=== PATIENT | female | born 1985 | race Caucasian/White ===

== ENCOUNTER 2017-09-03 05:06 | Observation (INO) | payer OTHER ==
[~2017-09-03] VITALS: Ht 180.3 cm; Wt 86.6 kg
[~2017-09-03 05:06] MED LIST: IBUPROFEN800 MG PO; MICRONOR0.35 MG PO; PNV-OB WITH DH1 EACH PO
[2017-09-03 07:34] LABS: BASOPHIL (%) 0.2 % (0-1); EOSINOPHIL COUNT 0.1 K/uL (0-0.3); HEMATOCRIT 39.1 % (36.0-46.0); HEMOGLOBIN 13.2 G/DL (11.9-15.5); IMMATURE GRANULOCYTE (%) 0.3 % (0.0-0.7); LYMPHOCYTE (%) 11.6 % (15-42); LYMPHOCYTE COUNT 1.2 K/uL (1.0-2.8); MCHC 33.8 G/DL (30.0-36.0); MCV 85.9 FL (83-99); MONOCYTE (%) 11.2 % (3-12); MONOCYTE COUNT 1.1 K/uL (0-0.8); NEUTROPHIL (%) 75.7 % (45-76); NEUTROPHIL COUNT 7.7 K/uL (1.8-6.4); PLATELET COUNT 232 K/uL (156-360); RBC DIS.WIDTH-CV 12.9 % (11.8-14.6); RBC DIS.WIDTH-SD 40.3 % (39-53); RED BLOOD COUNT 4.55 M/uL (3.80-5.20); WHITE BLOOD COUNT 10.1 K/uL (4.1-10.2)
[2017-09-03 08:09] LABS: ALBUMIN 3.7 g/dL (3.2-4.8); CHLORIDE 107 mEq/L (99-109); POTASSIUM 4.1 mEq/L (3.7-5.4); SODIUM 137 mEq/L (136-147)
[2017-09-03 08:11] LABS: GLUCOSE 89 mg/dL (70-99); TOTAL PROTEIN 6.7 g/dL (6.4-8.3)
[2017-09-03 08:15] LABS: ALKALINE PHOSPHATASE 76 IU/L (3-129); CREATININE 0.8 mg/dL (0.6-1.3); GFR ESTIMATE (CALCULATED) > 59 mL/min/
[2017-09-03 08:16] LABS: AST (GOT) 14 IU/L (2-34); UREA NITROGEN (BUN) 13 mg/dL (9-23)
[2017-09-03 08:18] LABS: ALT (GPT) 7 IU/L (3-49); LIPASE 18 U/L (1.0-51.0)
[2017-09-03] MEDS ORDERED: TRI-LO-MARZIA1 EACH PO (12:11)
[2017-09-03] MEDS ORDERED: ADVIL,NUPRIN,M200 MG PO (12:12)
[2017-09-03] MEDS ORDERED: OMEGA-3 1,0001 EAC1 PO (12:13)
[2017-09-03] MEDS ORDERED: MULTIVITAMIN1 EAC2 PO (12:13)
[2017-09-03] MEDS ORDERED: ESCITALOPRAM OX10 MG PO (12:14)
[2017-09-03] MEDS ORDERED: VITAMIN D PO (12:14)
[2017-09-03 13:30] LABS: TROP-I INTERPRETATION NEGATIVE; TROPONIN-I < 0.01 ng/mL (0.0-0.30)
[2017-09-03 16:23] VITALS: BP 123/67
[2017-09-03 19:24] LABS: TROP-I INTERPRETATION NEGATIVE; TROPONIN-I < 0.01 ng/mL (0.0-0.30)
[2017-09-03 19:26] VITALS: BP 128/62
[2017-09-03 23:53] VITALS: BP 107/57
[2017-09-04 01:34] LABS: TROP-I INTERPRETATION NEGATIVE; TROPONIN-I < 0.01 ng/mL (0.0-0.30)
[2017-09-04 05:01] VITALS: BP 105/65
[2017-09-04 05:13] LABS: HEMATOCRIT 35.6 % (36.0-46.0); HEMOGLOBIN 11.5 G/DL (11.9-15.5); MCHC 32.3 G/DL (30.0-36.0); MCV 86.6 FL (83-99); PLATELET COUNT 218 K/uL (156-360); RED BLOOD COUNT 4.11 M/uL (3.80-5.20); WHITE BLOOD COUNT 10.3 K/uL (4.1-10.2)
[2017-09-04 05:35] LABS: CHLORIDE 106 MEQ/L (99-109); CREATININE 0.8 MG/DL (0.6-1.3); GFR ESTIMATE (CALCULATED) > 59 mL/min/; GLUCOSE 103 mg/dL (70-99); POTASSIUM 4.3 MEQ/L (3.7-5.4); SODIUM 140 MEQ/L (136-147); UREA NITROGEN (BUN) 9 mg/dL (9-23)
[2017-09-04 08:47] VITALS: BP 106/57
[2017-09-04] MEDS ORDERED: HYDROCODON-ACE1 EAC7 PO (10:17)
[2017-09-04] MEDS ORDERED: XARELTO1 EACH PO (10:35)
== END 2017-09-04 16:32 | disposition home or self-care (01) ==
LOC: EME 05:06 → EDOF 11:33 → ENRESERV 11:36 → 5WEST 15:34
PROVIDERS: Emergency Medicine; Internal Medicine
DX: I26.99 Other pulmonary embolism without acute cor pulmonale (principal); Z79.3 Long term (current) use of hormonal contraceptives; D68.9 Coagulation defect, unspecified
CPT/HCPCS: 71046; 71275; 80048; 80053; 81025; 81240 90; 83090 90; 83690; 83880; 84484; 85025; 85027; 85240 90; 85300 90; 85303 90; 85305 90; 85306 90; 85379; 85613 90; 85730 90; 86146 90; 86147 90; 93005; 93306; 93970; 99281; 99285; G0378; J7030